=== PATIENT | female | born 1945 | race Caucasian/White ===

== ENCOUNTER 2017-10-08 08:52 | Outpatient (CLI) | payer MEDICARE, BC | END 2017-10-08 08:53 | disposition home or self-care (01) | LOC: EMS 08:52 | PROVIDERS: ATTEND Surgery | DX: S06.9X1A Unspecified intracranial injury with loss of consciousness of 30 minutes or less, initial encounter (principal); W01.198A Fall on same level from slipping, tripping and stumbling with subsequent striking against other object, initial encounter; Y92.019 Unspecified place in single-family (private) house as the place of occurrence of the external cause | CPT/HCPCS: A0425; A0427 ==

== ENCOUNTER 2017-10-08 09:26 | Emergency (ER) | payer MEDICARE, BC ==
--- NOTE | 2017-10-08 09:57 | ED Physician Documentation ---
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 No: Chest, Abdomen Quality of pain: Aching Associated symptoms: LOC ( says LOC for few seconds then was dazed for several minutes.). No: Weakness, Paresthesias, Dyspnea Contributing factors: No: Anticoagulated, Intoxicated Similar symptoms before: Diagnosis (positional vertigo for years. Has to get up and sit a few moments then dizziness abates. She got up quickly for bathroom and lost balance today.) Recently seen: Not recently seen Review of Systems Constitutional: denies: Fever, Chills Nose: denies: Rhinorrhea / runny nose, Congestion Throat: denies: Sore throat Cardiac: denies: Chest pain / pressure, Palpitations Respiratory: denies: Cough GI: denies: Abdominal Pain, Nausea, Vomiting, Diarrhea : denies: Dysuria, Frequency Skin: denies: Abrasion (s), Laceration (s) Neurologic: reports: Headache, Head injury. denies: Focal weakness, Numbness, Difficulty speaking PD PAST MEDICAL HISTORY - Past Medical History Respiratory: Pneumonia Neuro: Motion sickness, Other (positional vertigo and has been to ENT and neuro with testing for it. 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 - Present Medications Home Medications: Ambulatory Orders Medication Instructions Recorded Confirmed Meclizine [Antivert] 12.5 mg PO Q6H PRN #30 tablet 10/08/17 - Allergies Allergies/Adverse Reactions: Allergies Allergy/AdvReac Type Severity Reaction Status Date / Time codeine Allergy Unknown Verified 10/08/17 09:36 latex Allergy Unknown Verified 10/08/17 09:36 - Social History Does the pt smoke?: No Smoking Status: Never smoker Does the pt drink ETOH?: Yes Does the pt have substance abuse?: No - Immunizations Immunizations are current?: Yes - POLST Patient has POLST: No PD ED PE NORMAL - Vitals Vital signs reviewed: Yes - General General: Alert and oriented X 3, No acute distress, Well developed/nourished - HEENT HEENT: PERRL (mild nystagmus to right), EOMI, Pharynx benign. No: Atraumatic ( mild tender on right side of head) - Neck Neck: Supple, no meningeal sign, No adenopathy, No JVD - Cardiac Cardiac: RRR, No murmur - Respiratory Respiratory: Clear bilaterally, Other (tender without defromity at medial clavicle area. ) - Abdomen Abdomen: Soft, Non tender - Back Back: No spinal TTP - Derm Derm: Normal color, Warm and dry - Extremities Extremities: No deformity, Other (right posterior hip/gluteal area with tenderness but good ROM of the hip. 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 No significant injuries. Had brief LOC and dazed, but normal head CT. ) Departure - Departure Disposition: 01 Home, Self Care Clinical Impression: Vertigo Fall from slip, trip, or stumble Qualifiers: Encounter type: initial encounter Qualified Code(s): W01.0XXA - Fall on same level from slipping, tripping and stumbling without subsequent striking against object, initial encounter Mild concussion Qualifiers: Encounter type: initial encounter Loss of consciousness presence/duration: with LOC of 30 min or less Qualified Code(s): S06.0X1A - Concussion with loss of consciousness of 30 minutes or less, initial encounter Sternoclavicular (joint) (ligament) sprain Qualifiers: Encounter type: initial encounter Laterality: right Qualified Code(s): S43.61XA - Sprain of right sternoclavicular joint, initial encounter Contusion, hip Qualifiers: Encounter type: initial encounter Laterality: right Qualified Code(s): S70.01XA - Contusion of right hip, initial encounter Condition: Stable Record reviewed to determine appropriate education?: Yes Instructions: ED Concussion Follow-Up: James Sanchez MD [Primary Care Provider] - Prescriptions: Meclizine [Antivert] 12.5 mg PO Q6H PRN #30 tablet PRN Reason: Vertigo Comments: ibuprofen or naproxen if needed for pains. Use meclizine half to 1 tablet every 6-8 hours if needed for dizziness. Continue other usual medications. I do expect some headache and difficulty concentrating perhaps over the next couple of days related to hitting her head. This should improve. Recheck if worsening symptoms that way. Discharge Date/Time: 10/08/17 12:07
[2017-10-08] MEDS ORDERED: MECLIZINE 12.5 MG TABLET PO STA (10:23)
[2017-10-08] MEDS ORDERED: KETOROLAC 60 MG/2 ML VIAL IVP STA (10:23)
--- NOTE | 2017-10-08 11:11 | CT Report ---
EXAM: CT HEAD EXAM DATE: 10/08/2017 11:05 AM. CLINICAL HISTORY: Fall to right side; struck head, brief LOC. COMPARISON: None. TECHNIQUE: Multiaxial CT images were obtained from the foramen magnum to the vertex. Reformats: Coron al. IV contrast: None. In accordance with CT protocol optimization, one or more of the following dose reduction techniques w ere utilized for this exam: automated exposure control, adjustment of mA and/or KV based on patient s ize, or use of iterative reconstructive technique. FINDINGS: Parenchyma: No intraparenchymal hemorrhage. No evidence of mass, midline shift, or CT findings of inf arction. Massey-white differentiation is distinct. Extraaxial Spaces: Normal for age. No subdural or epidural collections identified. Ventricles: Normal in size and position. Sinuses and Orbits: Imaged paranasal sinuses, orbits, and mastoids show no significant abnormality. Bones: No evidence of fracture or calvarial defect. Other: None. IMPRESSION: No acute intracranial abnormality identified. [facility] Referring Provider Line: [phone] SITE ID: [id number]
--- NOTE | 2017-10-08 11:19 | XRAY Report ---
EXAM: RIGHT CLAVICLE RADIOGRAPHY EXAM DATE: 10/08/2017 10:58 AM. CLINICAL HISTORY: Fall this morning. COMPARISON: None. TECHNIQUE: 2 views. FINDINGS: Bones: Normal. No fracture or bone lesion. Joints: The acromioclavicular and sternoclavicular joints are normally aligned. No subluxation. Estephania nal osteophytes are seen along the inferior aspects of glenohumeral and acromioclavicular joints. Soft Tissues: Normal. No soft tissue swelling. IMPRESSION: 1. No fracture evident. 2. Right shoulder degenerative changes. [facility] Referring Provider Line: [phone] SITE ID: [id number]
--- NOTE | 2017-10-08 11:31 | XRAY Report ---
EXAM: RIGHT HIP AND PELVIS RADIOGRAPHY EXAM DATE: 10/08/2017 10:58 AM. HISTORY: Fall this morning. Struck right buttock with pain. COMPARISONS: None. TECHNIQUE: 1 view of the pelvis and 1 view of the hip. Technologist "right marker" overlies right inferior intertrochanteric region on AP view. FINDINGS: Bones: No fracture demonstrated. Joints: Mild right hip joint space narrowing. No dislocation or subluxation. Pubic symphysis subchondral sclerosis. Lower lumbar spine degenerative changes are likely present. Soft Tissues: Normal. No soft tissue swelling. IMPRESSION: 1. No evidence for fracture or dislocation. Technologist "right marker" overlies right inferior intertrochanteric region on AP view. [facility] Referring Provider Line: [phone] SITE ID: [id number]
[2017-10-08 12:07] VITALS: BP 172/94
== END 2017-10-08 12:07 | disposition home or self-care (01) ==
LOC: ED 09:26
DX: R42 Dizziness and giddiness (principal); S06.0X1A Concussion with loss of consciousness of 30 minutes or less, initial encounter; S43.61XA Sprain of right sternoclavicular joint, initial encounter; S70.01XA Contusion of right hip, initial encounter; W18.30XA Fall on same level, unspecified, initial encounter; Y92.009 Unspecified place in unspecified non-institutional (private) residence as the place of occurrence of the external cause
CPT/HCPCS: 70450; 73000; 73502; 96374; 99283; 99284; A9270

== ENCOUNTER 2018-05-10 13:14 | Outpatient (CLI) | payer BC, MEDICARE | END 2018-05-10 13:15 | disposition home or self-care (01) | LOC: SC 13:14 | PROVIDERS: ATTEND Internal Medicine Pulmonary Disease | DX: G47.33 Obstructive sleep apnea (adult) (pediatric) (principal) | CPT/HCPCS: 99203; 99212 ==

== ENCOUNTER 2018-10-21 15:28 | Outpatient (CLI) | payer BC, MEDICARE ==
--- NOTE | 2018-10-21 18:42 | XRAY Report ---
Reason: ANKLE JOINT PAIN, RIGHT Procedure Date: 10/21/2018 Accession Number: [id number] / [id number] Procedure: XR - Ankle 3 View RT CPT Code: FULL RESULT: EXAM: RIGHT ANKLE RADIOGRAPHY EXAM DATE: 10/21/2018 03:59 PM. CLINICAL HISTORY: ANKLE JOINT PAIN, RIGHT. Fall yesterday with lateral malleolar pain and swelling. COMPARISON: None. TECHNIQUE: 3 views. FINDINGS: Bones: Normal. No fractures or bone lesions. Joints: Potential trace tibiotalar joint effusion. No subluxations. The ankle mortise is normally aligned. Soft Tissues: Calcaneal enthesophytes. Lateral soft tissue swelling. IMPRESSION: 1. Moderate lateral soft tissue swelling without evidence of fracture. 2. Potential trace tibiotalar joint effusion. [facility]
== END 2018-10-21 15:29 | disposition home or self-care (01) ==
LOC: DI 15:28
PROVIDERS: ATTEND Internal Medicine
DX: M25.571 Pain in right ankle and joints of right foot (principal); R22.41 Localized swelling, mass and lump, right lower limb

== ENCOUNTER 2019-09-22 13:54 | Emergency (ER) | payer MEDICARE, BC ==
[2019-09-22 14:00] VITALS: BP 146/69
--- NOTE | 2019-09-22 14:34 | ED Physician Documentation ---
History of Present Illness - Stated complaint Stated Complaint: RT EAR PX - Chief complaint Chief Complaint: Heent - History obtained from History obtained from: Patient - History of Present Illness Timing: How many weeks ago (3-4) Pain level max: 1 Pain level now: 1 - Additonal information Additional information: 74-year-old female states that her ears have been bothering her for the past month and she wakes up with drainage on her pillows. She tried inserting Q- tips, but states that she cannot insert Q-tips into her ears. Nothing makes it better or worse. 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 - Present Medications Home Medications: Ambulatory Orders Medication Instructions Recorded Confirmed Meclizine [Antivert] 12.5 mg PO Q6H PRN #30 tablet 10/08/17 Neomycin/Polymyx/Hc Otic Drops 4 drops OT TID 10 Days #1 bottle 09/22/19 [Cortisporin Ear Susp] - Allergies Allergies/Adverse Reactions: Allergies Allergy/AdvReac Type Severity Reaction Status Date / Time codeine Allergy Unknown Verified 10/08/17 09:36 latex Allergy Unknown Verified 10/08/17 09:36 lactase [From Dairy Aid] AdvReac Unknown Verified 09/22/19 14:01 monosodium glutamate AdvReac Unknown Verified 09/22/19 14:01 wheat AdvReac Unknown Verified 09/22/19 14:01 - Social History Does the pt smoke?: No Smoking Status: Never smoker Does the pt drink ETOH?: Yes Does the pt have substance abuse?: No - Immunizations Immunizations are current?: Yes - POLST Patient has POLST: No PD ED PE NORMAL - Vitals Vital signs reviewed: Yes - General General: Alert and oriented X 3, No acute distress - HEENT HEENT: Moist mucous membranes, Other (Bilateral ear canals are swollen and e dematous. White discharge bilaterally. Otherwise normal ear exams) - Neck Neck: Supple, no meningeal sign - Cardiac Cardiac: RRR - Respiratory Respiratory: No respiratory distress, Clear bilaterally - Derm Derm: Warm and dry - Neuro Neuro: Alert and oriented X 3 - Psych Psych: Normal mood, Normal affect Results - Vitals Vitals: Vital Signs - 24 hr 09/22/19 13:56 Temperature 36.5 C Heart Rate 76 Respiratory 16 Rate Blood Pressure 146/69 H O2 Saturation 96 Oxygen O2 Source Room air PD MEDICAL DECISION MAKING - ED course Complexity details: considered differential, d/w patient ED course: Patient appears to have bilateral acute otitis externa. Will place on Cortisporin otic. We will have her follow-up with her doctor. She does not wear hearing aids or place other items in her ears. Patient counseled regarding signs and symptoms for which I believe and urgent re-evaluation would be necessary. Patient with good understanding of and agreement to plan and is comfortable going home at this time This document was made in part using voice recognition software. While efforts are made to proofread this document, sound alike and grammatical errors may occur. Departure - Departure Disposition: 01 Home, Self Care Clinical Impression: Otitis externa Qualifiers: Otitis externa type: unspecified type Chronicity: acute Laterality: bilateral Qualified Code(s): H60.503 - Unspecified acute noninfective otitis externa, bilateral Condition: Good Instructions: ED Otitis Externa Follow-Up: LEA TAI ARNP [Primary Care Provider] - Within 1 week Prescriptions: Neomycin/Polymyx/Hc Otic Drops [Cortisporin Ear Susp] 4 drops OT TID 10 Days #1 bottle Comments: Use the antibiotic drops as prescribed. Return if you worsen. Discharge Date/Time: 09/22/19 14:50
== END 2019-09-22 14:50 | disposition home or self-care (01) ==
LOC: ED 13:54
DX: H60.503 Unspecified acute noninfective otitis externa, bilateral (principal); I10 Essential (primary) hypertension
CPT/HCPCS: 99282; 99283

== ENCOUNTER 2022-12-24 09:19 | Outpatient (CLI) | payer MEDICARE, BC ==
--- NOTE | 2022-12-24 10:54 | SLEEP CARE CONSULTATION ---
Information from patient questionnaire entered by Mike Cuellar. I have reviewed and concur with the information entered by Mike Cuellar. This document represents the service I personally performed and the decisions made by me, Sandra Burdick ARNP. History of Present Illness Service Date and Time: 12/24/2022 0919 Reason for Visit: New patient, Previously diagnosed sleep apnea, sleep apnea on CPAP therapy Chief Complaint: reports: Other (TRANSFER FROM [facility]) Date of Onset: 5-6 years Usual bedtime: varies Time it takes to fall asleep: 5 mins or less Snores at night: Yes Observed to quit breathing while asleep: Yes Sleeps alone due to snoring: Yes Number of times waking at night: 3+ Reasons for waking at night: reports: Bathroom, Other (NOISE OR UNKNOWN) Toss, Turn, or Twitch while sleeping: Yes Recalls having dreams: Yes Usually gets out of bed at: varies, 0530 to 0700 Feels refreshed in the morning: Yes Morning headache: Yes (2 times a month; RESOLVES AFTER COFFEE) Sleepy or fatigued during the day: No Ever fallen asleep while driving: No Takes day naps: Yes Dreams during day naps: No Prior sleep studies: Yes ([facility]) Year and Where: 2018 Additional HPI information: ARTHUR SANTA was previously diagnosed on 09/19/2019 at [facility] to have mild, AHI 10.5, obstructive sleep apnea-hypopnea syndrome and comes in today to establish care for CPAP therapy. - Parasomnia Symptoms Ever been unable to move upon waking from sleep: No Walks in sleep: No Talks in sleep: Yes Ever acted out dreams in sleep: No Ever felt weak in the knees when startled or emotional: No Bothered by creepy, crawly, restless sensations in legs: No Problems with memory or concentration: No CPAP Compliance Data - Data Reviewed with Patient Average duration of nightly device use: 7 hours 52 minutes Compliance rate %: 83.3 (150/180 days used) Current pressure setting (cmH2O): 4-9 Average residual AHI: 2.7 Central apnea: 0.1 Obstructive apnea: 0.4 Hypopnea: 2.2 Average large leak: 52 seconds Compliance data discussion: She has a Dreamstation s/u in 11/2019 but received a new one in 2020 as a re- certified. She is using a nasal cushion, which it may be a Dreamwear by [employer]. She is getting her supplies from [employer] in [place]. Subjective Missed days of use due to: reports: travel Patient concerns: reports: other (headgear will move). denies: aerophagia, mask discomfort, air blowing in eyes, mask leak noise, condensation in mask/hose, nasal congestion, dry mouth, nose, throat, epistaxis Observed to snore while using device: No Current pressure setting perceived as: comfortable On therapy, patient: reports: sleeping better, awakening more refreshed, being more awake and alert during the day, more rested overall. 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 Patient is and lives in [place]. Have you smoked in the past 12 months: No Alcohol use: Yes Alcohol amount and frequency: 1 GLASS A WEEK Caffeine use: Yes Caffeine amount and frequency: 2 CUPS A DAY Family History Family history of sleep disordered breathing: No Family Hx Sleep Apnea: Mother: Snoring, Father: Snoring Allergies and Home Medications Known drug allergies: Yes (as listed) Drug allergies reviewed: Yes Home medication list reviewed: Yes Allergy and home medication list: Allergies codeine Allergy (Verified 12/23/22 08:43) Unknown latex Allergy (Verified 12/23/22 08:43) Unknown lactase [From Dairy Aid] Adverse Reaction (Verified 12/23/22 08:43) Unknown monosodium glutamate Adverse Reaction (Verified 12/23/22 08:43) Unknown wheat Adverse Reaction (Verified 12/23/22 08:43) Unknown Medications: Lisinopril B12 D3 Calcium Magnesium Review of Systems Cardiovascular: reports: high blood pressure Gastrointestinal: reports: heartburn Neurological: reports: gait or balance problems Psychiatric: denies: anxiety, depression Ear/Nose/Throat: reports: sinus problems, dry mouth/throat, tonsillectomy, wisdom teeth removed Endocrine: reports: sluggishness Musculoskeletal: reports: joint pain Immunologic: reports: sneezing, allergies to food or environment (perfume, scents, after shave, dryer sheets) Physical Exam Vital signs obtained and entered by: MIKE Mercer MA Blood Pressure: 132/80 (LEFT ARM) Cuff size: regular Heart Rate: 70 O2 Saturation: 97 Height: 5 ft 2 in Weight: 182 lb 9.6 oz Body Mass Index: 33.4 BMI Classification: Obese Neck circumference: 15.25 Heart: regular rate and rhythm Lungs: clear bilaterally Impression and Plan 1. Obstructive Sleep Apnea-Hypopnea Syndrome, mild, with good treatment compliance and good apnea control. On CPAP therapy, the patient has better sleep quality and is more rested overall. Patient has significant improvement of their sleep apnea and is satisfied with current CPAP therapy. Patient denies problems with oral dryness, nasal congestion, epistaxis, skin irritation or aerophagia. Patient's apnea severity and rationale for treatment to reduce apnea, improve sleep quality and reduce cardiovascular and cerebrovascular events was reviewed. I also reviewed the benefit of consistent device use of CPAP for hypertension. 2. Obesity, unspecified. Currently patients BMI is 33.4. Obesity increases the risk of apnea, CPAP pressure requirements and overall health risks especially cardiovascular and diabetes. Thus patient is advised to lose weight. * Continue auto CPAP pressure at 4-9 cmH2O * Update supplies * Notify me if snoring with mask or feeling that the pressure is too much or too little * Attempt to lose weight * Call this office if any problems using CPAP * Return for follow up in 1 year, or sooner if concerns arise Counseling Topics: Spare mask, Weight loss health impact Visit Type: In Office Time Spent with Patient (minutes): 33 Provider Statement: I spent 100% of the Face to Face Visit with the patient with greater than 50% spent counseling the patient and coordination of care.
[2022-12-24 10:55] VITALS: BP 132/80
== END 2022-12-24 09:20 | disposition home or self-care (01) ==
LOC: SC 09:19
PROVIDERS: ATTEND Nurse Practitioner Family
DX: G47.33 Obstructive sleep apnea (adult) (pediatric) (principal); E66.9 Obesity, unspecified; Z68.33 Body mass index [BMI] 33.0-33.9, adult
CPT/HCPCS: 99203; G0463; 99212

== ENCOUNTER 2023-12-25 14:00 | Outpatient (CLI) | payer MEDICARE, BC ==
--- NOTE | 2023-12-25 14:26 | Sleep Patient Instructions ---
Sleep Center Visit Summary - Patient Visit Information Reason for Visit: Annual Follow up - Patient Instructions Additional Instructions: You will continue with CPAP therapy with pressure set at 4-9 cmH2O. A supply prescription will be updated with your DME. We encourage you to continue to try to lose weight. Please follow up with the sleep care office in 1 year. - Clinic Information Contact: [facility] [address] [place] [address] [email or web address] T: [phone]
--- NOTE | 2023-12-25 14:34 | SLEEP CARE CONSULTATION ---
Information from patient questionnaire entered by Jesusita Cuellar. I have reviewed and concur with the information entered by Jesusita Cuellar. This document represents the service I personally performed and the decisions made by me, Sandra Burdick ARNP. History of Present Illness Service Date and Time: 12/25/2023 1400 Previous diagnosis: Mild, Obstructive Sleep Apnea-Hypopnea Syndrome AHI: 10.5 (2018) Reason for follow up: annual (LAST SEEN 12/2022) Equipment type: CPAP (ISAIAH Dreamstation, recertified) Equipment obtained from: [email or web address] (in [place]; getting supplies) Mask style: Nasal Mask brand: Respironics (Dreamwear) Backup mask available: No Last cushion change: 2 weeks Prior sleep studies: Yes ([facility]) Year and Where: 2018 HPI additional information: ARTHUR SANTA was diagnosed to have mild, AHI 10.5, obstructive sleep apnea- hypopnea syndrome and returned today for CPAP therapy annual follow-up. Sleep Study - Results Prior sleep studies: Yes ([facility]) Year and Where: 2018 CPAP Compliance Data - Data Reviewed with Patient Average duration of nightly device use: 6 HRS 24 MINS 51 SECS Compliance rate %: 82.7 (12/22/22-12/21/23; 307/384 days used) Current pressure setting (cmH2O): 4-9 Average residual AHI: 2.7 Central apnea: 0.1 Obstructive apnea: 0.4 Hypopnea: 2.2 Average large leak: 1 mins 11 secs Subjective Missed days of use due to: reports: illness (sinus issues/ allergies), other (power outage) Patient concerns: reports: nasal congestion (sinus issues), dry mouth, nose, throat (dry mouth). denies: aerophagia, mask discomfort, air blowing in eyes, mask leak noise, condensation in mask/hose, epistaxis Observed to snore while using device: No Current pressure setting perceived as: comfortable On therapy, patient: reports: sleeping better, awakening more refreshed, being more awake and alert during the day, more rested overall. denies: drowsiness while driving Initial Watson Sleepiness Scale score: 7 (12/23/22) Current Watson Sleepiness Scale score: 8 (12/25/23) Allergies and Home Medications Known drug allergies: Yes (as listed) Drug allergies reviewed: Yes Home medication list reviewed: Yes (no changes) Allergy and home medication list: Allergies codeine Allergy (Verified 12/23/23 15:50) Unknown latex Allergy (Verified 12/23/23 15:50) Unknown lactase [From Dairy Aid] Adverse Reaction (Verified 12/23/23 15:50) Unknown monosodium glutamate Adverse Reaction (Verified 12/23/23 15:50) Unknown wheat Adverse Reaction (Verified 12/23/23 15:50) Unknown Review of Systems Review of systems same as previous: Yes (NO CHANGE) Physical Exam Vital signs obtained and entered by: JESUSITA Mercer MA Blood Pressure: 140/94 (LEFT ARM) Cuff size: regular Heart Rate: 85 O2 Saturation: 98 Height: 5 ft 2 in Weight: 187 lb Body Mass Index: 34.2 BMI Classification: Obese Impression and Plan 1. Obstructive Sleep Apnea-Hypopnea Syndrome, mild, with good treatment compliance and good apnea control. On CPAP therapy, the patient has better sleep quality and is more rested overall. Patient has significant improvement of their sleep apnea and is satisfied with current CPAP therapy. She has been waking up with very dry throat. She does use the humidifer and it is set at 2 with heated hose at 2. Her dentist has also told her that her mouth is too dry. I adjusted her humidity to 3 to try to reduce oral dryness. She says she has sinus issues and too much moisture can cause more sinus drainage. I also advised that she try a mouth moisturizer like Biotene or Xylimelts to reduce dryness. She voiced understanding. Patient's apnea severity and rationale for treatment to reduce apnea, improve sleep quality and reduce cardiovascular and cerebrovascular events was reviewed. I also reviewed the benefit of consistent device use of CPAP for hypertension, gastric reflux. 2. Obesity, unspecified. Currently patients BMI is 34.2. Obesity increases the risk of apnea, CPAP pressure requirements and overall health risks especially cardiovascular and diabetes. Thus patient is advised to lose weight. * Continue auto CPAP pressure at 4-9 cmH2O * Update supply prescription * Notify me if snoring with mask or feeling that the pressure is too much or too little * Attempt to lose weight * Call this office if any problems using CPAP * Return for follow up in 12 months, or sooner if concerns arise Counseling Topics: Spare mask, Weight loss health impact Prescriptions: Device supplies Follow up with Sleep Care in: 1 year Visit Type: In Office Time Spent with Patient (minutes): 28 Provider Statement: I spent 100% of the Face to Face Visit with the patient with greater than 50% spent counseling the patient and coordination of care.
[2023-12-25 14:53] VITALS: BP 140/94; O2SAT 98
== END 2023-12-25 14:01 | disposition home or self-care (01) ==
LOC: SC 14:00
PROVIDERS: ATTEND Nurse Practitioner Family
DX: G47.33 Obstructive sleep apnea (adult) (pediatric) (principal); E66.9 Obesity, unspecified; Z68.34 Body mass index [BMI] 34.0-34.9, adult
CPT/HCPCS: 99213; G0463; 99212